=== PATIENT | female | born 1960 | race Caucasian/White ===

== ENCOUNTER → 2019-12-09 10:25 | Outpatient (CLI) | payer OTHER, SELFPAY ==
--- NOTE | ~2019-12-09 | XR_ITS ---
XR hip BI 2V w AP pelvis DATE: 12/09/2019 10:55 INDICATION: Back pain, pelvic pain, lower leg cramping. TECHNIQUE: AP pelvis. AP and lateral views of each hip. COMPARISON: None FINDINGS: Posterior rods and screws extend from the lumbar spine to the ilium bilaterally. There is a transitional lumbosacral vertebra. Osteopenia. Normal alignment at the pubic symphysis and sacroiliac joints. No pelvic fracture or bone destruction is evident. Hip joint spaces appear symmetric and relatively preserved. No fracture, dislocation, av ascular necrosis or bone destruction of either hip is detected. Probable bone island of proximal right femoral shaft. IMPRESSION: Posterior fusion from lumbar spine to sacroiliac areas Reviewed, dictated and finalized at location B.
== END ==
PROVIDERS: PCP Family Medicine; Visit Provider Internal Medicine
DX: R25.2 Cramp and spasm (principal); Z98.1 Arthrodesis status
CPT/HCPCS: 73521

== ENCOUNTER → 2021-08-28 16:17 | Outpatient (CLI) | payer OTHER, SELFPAY ==
--- NOTE | ~2021-08-28 | XR_ITS ---
XR thoracic spine 3V DATE: 08/28/2021 16:49 INDICATION: Rheumatoid arthritis TECHNIQUE: AP, lateral, swimmer views COMPARISON: None FINDINGS: There is moderate degenerative disc disease and mild retrolisthesis at C3-4. There is anterior surgical fusion at C5-6, with overall anterior fusion at C5-7.. There are pedicle screws and rods at T11 extending into the lumbar area. There is diffuse osteopenia. There is minimal levoscoliosis of the thoracic spine. There is severe degenerative disc disease at T10-11. No fracture or bone destruction of the thoracic spine is evident. The thoracic pedicles are intact. N o paraspinal soft tissue thickening. IMPRESSION: Status post anterior C5-6 cervical spine fusion Anterior fusion at C5-7 Osteopenia Mild levoscoliosis Pedicle screws and rods beginning at T11, extending into the lumbar area Severe degenerative disc disease at T10-11 Reviewed, dictated and finalized at location A.
--- NOTE | ~2021-08-28 | XR_ITS ---
XR lumbar spine 2-3V DATE: 08/28/2021 16:49 INDICATION: Rheumatoid arthritis TECHNIQUE: AP, lateral, coned lateral lumbosacral views COMPARISON: 11/21/2015 lumbar spine FINDINGS: There is prominent diffuse osteopenia. There pedicle screws and rods extending from T11 to the sacral area can with screws extending across the sacroiliac areas bilaterally. There is interbody spinal fusion at L1-2, L2-3 and L3-4. There is severe degenerative disc disease at L4-5. No fracture or bone destruction of the lumbar spine is evident. The sacroiliac joints are intact. IMPRESSION: Pedicle screws and rods extending from T11 into the sacral area, with screws extending ac ross both sacroiliac areas Interbody spinal fusion at L1-2 through L3-4 Severe osteopenia Severe degenerative disc disease at T10-11 Reviewed, dictated and finalized at location A. IMPRESSION: Pedicle screws and rods extending from T11 into the sacral area, wi th screws extending across both sacroiliac areas Interbody spinal fusion at L1-2 through L3-4 Severe osteopenia Severe degenerative disc disease at T10-11
== END ==
PROVIDERS: PCP Family Medicine; Visit Provider Internal Medicine
DX: M06.09 Rheumatoid arthritis without rheumatoid factor, multiple sites (principal); M45.0 Ankylosing spondylitis of multiple sites in spine; N18.4 Chronic kidney disease, stage 4 (severe); Z98.1 Arthrodesis status; M85.88 Other specified disorders of bone density and structure, other site; M51.34 Other intervertebral disc degeneration, thoracic region; M41.84 Other forms of scoliosis, thoracic region
CPT/HCPCS: 72072; 72100

== ENCOUNTER → 2021-12-13 12:16 | Outpatient (CLI) | payer OTHER, SELFPAY ==
--- NOTE | ~2021-12-13 | XR_ITS ---
XR knee RT 2V DATE: 12/13/2021 13:52 INDICATION: Knee pain TECHNIQUE: Standing AP and lateral views COMPARISON: None FINDINGS: Small suprapatellar knee joint effusion is suggested. Osteopenia. Minimal periarticular spurring of the patella. There is moderate loss of medial compartment joint spa ce height. No radiopaque intra-articular loose body or chondrocalcinosis. Enthesopathy of patella at patellar tendon insertion site. There is prominent sclerosis of the medial tibial plateau, likely secondary to previously reported garcia bchondral fracture of the medial tibial plateau on 08/23/2018 MRI examination. IMPRESSION: Old medial tibial plateau fracture Osteoarthritis at medial and patellofemoral compartments Small suprapatellar knee joint effusion Reviewed, dictated and finalized at location B.
--- NOTE | ~2021-12-13 | XR_ITS ---
XR hip BI wo pelvis DATE: 12/13/2021 13:52 INDICATION: Hip pain TECHNIQUE: AP and lateral views of each hip COMPARISON: None FINDINGS: Bilateral lumbar, sacral and sacroiliac pedicle screws and attached rods. No fracture or dislocation, avascular necrosis or bone destruction of either hip is detected. The pub ic symphysis and sacral iliac joints are intact. 1.3 cm osseous chronic lesions of the proximal femoral shaft, possibly a bone island, but nonspecific . Prominent amount fecal material in the rectum and colon. IMPRESSION: No significant radiographic abnormality of either hip Bilateral lumbosacral posterior surgical fusion Nonspecific 1.3 cm sclerotic lesion of the proximal right femoral shaft; diffusion diagnosis includes bone island, less likely osteoblastic metastasis. Reviewed, dictated and finalized at location B. IMPRESSION: No significant radiographic abnormality of either hip Bilateral lumbosacral posterior surgical fusion Nonspecific 1.3 cm sclerotic lesion of the proximal right femoral shaft; diffus ion diagnosis includes bone island, less likely osteoblastic metastasis.
--- NOTE | ~2021-12-13 | XR_ITS ---
XR lumbar spine 2-3V DATE: 12/13/2021 13:51 INDICATION: Lumbar radiculopathy TECHNIQUE: AP, lateral, coned lateral lumbosacral views COMPARISON: 08/28/2021 lumbar spine FINDINGS: Again noted are pedicle screws and rods extending from T11 into the upper sacrum, with lowe rmost screw on each side extending through the sacroiliac area. Status post interbody spinal fusion at L2-3, L3-4 and L4-5. Diffuse osteopenia. No fracture or bone destruction is evident. The sacroiliac joints are intact. Osteopenia No fracture or bone destruction is evident IMPRESSION: Pedicle screws and rods from T11 through the upper sacral area, interbody spinal fusion a t mid to lower lumbar spine Reviewed, dictated and finalized at location B. IMPRESSION: Pedicle screws and rods from T11 through the upper sacral area, int erbody spinal fusion at mid to lower lumbar spine
--- NOTE | ~2021-12-13 | XR_ITS ---
XR thoracic spine 3V DATE: 12/13/2021 13:51 INDICATION: Radiculopathy TECHNIQUE: AP, lateral and swimmer views COMPARISON: None FINDINGS: Status post anterior cervical spine interbody surgical fusion at C5-6. There is fusion of t he C5-6 and C6-7 interspaces. Pedicle screws and rods are noted in the lower thoracic and lumbar region, the uppermost pedicle scre ws at T11 bilaterally.. Diffuse osteopenia. Prominent degenerative disc disease and spurring at T10-11. There is mild degenerative spurring of th e thoracic spine otherwise. No thoracic spine fracture or bone destruction is evident. No paraspinal soft tissue thickening. IMPRESSION: Status post lower anterior cervical and posterior thoracolumbar surgical spinal fusion Osteopenia Degenerative change of the thoracic spine, particularly at T10-11 Reviewed, dictated and finalized at location B. IMPRESSION: Status post lower anterior cervical and posterior thoracolumbar ligia gical spinal fusion Osteopenia Degenerative change of the thoracic spine, particularly at T10-11
--- NOTE | ~2021-12-13 | XR_ITS ---
XR knee LT 2V 12/13/2021 13:52 Indication: Knee pain Procedure: 2 views left knee Comparison: No prior studies for comparison. Findings: No fracture, subluxation or dislocation. No significant joint effusion. No foreign bodies. Impression: 1: No acute bone or joint abnormality. Reviewed, dictated and finalized at location A. Impression: 1: No acute bone or joint abnormality.
--- NOTE | ~2021-12-13 | XR_ITS ---
XR_CERV2-3V_CR DATE: 12/13/2021 13:52 INDICATION: Cervical radiculopathy TECHNIQUE: Standing AP, lateral and open-mouth views COMPARISON: None FINDINGS: There is levoscoliosis of the cervical and upper thoracic spine. Osteopenia. Status post anterior cervical spine surgical fusion at C5-6 with plate and screws. There is fusion at C5-6 and C6-7 interspaces. No fracture or dislocation or locked facet or prevertebral soft tissue swelling. IMPRESSION: Levoscoliosis Osteopenia Status post anterior cervical spine fusion at C5-6, pleural effusion at the C5-6 and C6-7 interspaces Reviewed, dictated and finalized at Location A. Reviewed, dictated and finalized at location B. IMPRESSION: Levoscoliosis Osteopenia Status post anterior cervical spine fusion at C5-6, pleural effusion at the C5- 6 and C6-7 interspaces
== END ==
PROVIDERS: PCP Pain Medicine Interventional Pain Medicine; Visit Provider Pain Medicine Interventional Pain Medicine
DX: M17.11 Unilateral primary osteoarthritis, right knee (principal); M76.51 Patellar tendinitis, right knee; M25.461 Effusion, right knee; Z98.1 Arthrodesis status; M47.24 Other spondylosis with radiculopathy, thoracic region; M41.9 Scoliosis, unspecified
CPT/HCPCS: 72040; 72072; 72100; 73521; 73560

== ENCOUNTER → 2022-07-02 16:08 | Outpatient (CLI) | payer OTHER, SELFPAY ==
--- NOTE | ~2022-07-02 | US_ITS ---
EXAMINATION: US retroperitoneal comp DATE: 07/02/2022 16:50 INDICATION: Chronic Cystitis without hematuria TECHNIQUE: Multiple grayscale and Doppler ultrasound images of the kidneys were obtained. COMPARISON: MR abdomen 02/02/2019 FINDINGS: The right kidney measures 9.6 x 4.3 x 4.7 cm. The left kidney measures 10.6 x 5.6 x 4.8 cm. The kidne ys demonstrate normal parenchymal echogenicity. 1.3 cm simple right lower pole cyst. There is no hydr onephrosis. The bladder is partially decompressed and therefore poorly evaluated. IMPRESSION: Poorly visualized urinary bladder. Normal renal findings. Reviewed, dictated and finalized at location K. 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
== END ==
PROVIDERS: PCP Nurse Practitioner Family; Visit Provider Nurse Practitioner Family
DX: N30.20 Other chronic cystitis without hematuria (principal)
CPT/HCPCS: 76770

== ENCOUNTER → 2022-07-09 15:31 | Outpatient (CLI) | payer OTHER, SELFPAY ==
--- NOTE | ~2022-07-09 | MR_ITS ---
EXAMINATION: MR lumbar spine wo con DATE: 07/09/2022 16:17 INDICATION: Low back pain, unspecified. TECHNIQUE: Magnetic resonance imaging (MRI) of the lumbar spine was performed without intravenous con trast. COMPARISON: Lumbar spine MRI 03/05/2016 FINDINGS: There is 10 degrees levoscoliosis of lumbar spine. There are changes of anterior fusion pro cedures from L2 to L5 with interbody devices. There are changes of posterior fusion procedure from T1 1 to the sacrum and iliac bones with pedicle screws at most levels. There is severely decreased disc height at L5-S1 with endplate remodeling. The distal spinal cord signal intensity is normal. The conu s medullaris is at L1-L2. There are gallstones in the gallbladder. There are cysts in right kidney me asuring up to 19 mm. The following disc levels are specifically discussed: L1-L2: The disc does not extend beyond the endplate margin. There is no facet joint hypertrophy. Ther e is no neural foraminal stenosis. There is no central canal stenosis. L2-L3: There is no facet joint hypertrophy. There is no neural foraminal stenosis. There is no centra l canal stenosis. L3-L4: There is no facet joint hypertrophy. There is no neural foraminal stenosis. There is no centra l canal stenosis. L4-L5: There is no facet joint hypertrophy. There is no neural foraminal stenosis. There is no centra l canal stenosis. L5-S1: The disc is bulging and has an annular fissure. There is mild bilateral facet joint hypertroph y. There is mild bilateral neural foraminal stenosis. There is mild central canal stenosis with poste rior decompression. IMPRESSION: 1. Severe lower lumbar spondylosis. 2. Anterior fusion procedure from L2 to L5 and posterior fusion procedure from T11 to the sacrum and iliac bones. Reviewed, dictated and finalized at location A. TRUCTION SUPERVISOR/CARPENTER
== END ==
DX: M47.896 Other spondylosis, lumbar region (principal); Z98.1 Arthrodesis status
CPT/HCPCS: 72148